=== PATIENT | male | born 1970 | race Caucasian/White ===

== ENCOUNTER 2023-11-06 12:22 | Emergency (ER) | payer BC ==
[2023-11-06 12:32] VITALS: BMI 30.8
[2023-11-06] MEDS ORDERED: IBUPROFEN 600 MG TABLET (FP) PO ONE (15:56)
[2023-11-06] MEDS ORDERED: AMOX TR/POT CLAV 875MG/125MG TABLETS (FP) ONE (15:56)
[2023-11-06] MEDS: AMOX TR/POT CLAV 875MG/125MG TABLETS (FP) PO ONE (15:57)
[2023-11-06] MEDS: IBUPROFEN 600 MG TABLET (FP) PO ONE (15:58)
[2023-11-06 16:25] VITALS: BP 125/85; PULSE 94; RESP 20; TEMP 98.1
== END 2023-11-06 16:25 | disposition home or self-care (01) ==
LOC: JERFT 12:22 → JER 12:22 → JERFT 16:25
PROC: 0X9K0ZZ Drainage of Left Hand, Open Approach (ICD-10-PCS; principal; 2023-11-06)
DX: L03.012 Cellulitis of left finger (principal)
CPT/HCPCS: 99283-25